=== PATIENT | male | born 1980 | race Caucasian/White ===

== ENCOUNTER 2022-05-03 13:34 | Emergency (ER) | payer OTHER ==
[~2022-05-03] VITALS: Ht 188 cm; Wt 100.9 kg
[~2022-05-03 13:34] MED LIST: AMBIEN 5MG TABLE5 MG PO; CEPHALEXIN500 M1 PO; CPAP; DULERA1 AR1; FLONASE NASAL S16 GM NS; FLOVENT 220MCG7.9 GM IH; PREDNISONE10 MG PO; PRILOSEC 20MG20 MG PO; RT ADVAIR 528 DISKUS IH; SINGULAIR 110 MG/TAB PO; SPORANOX100 MG PO; TUDORZA IH; VENTOLIN0.09 MG IH; ZITHROMAX Z PA250 MG PO; ZYRTEC 10MG10 MG PO
[2022-05-03 13:48] VITALS: TEMP 97.9
[2022-05-03 15:18] LABS: BASO # 0.1 K/mm3 (0.0-0.2); BASO % 0.5 % (0.0-2.0); EOS # 0.2 K/mm3 (0.0-0.7); EOS % 1.5 % (0.0-4.0); GRAN # 8.1 K/mm3 (1.4-6.5); GRAN % 74.3 % (42.2-75.2); HEMATOCRIT 45.4 % (42.0-52.0); HEMOGLOBIN 16.1 g/dl (13.5-18.0); LYMPH # 1.8 K/mm3 (1.2-3.4); LYMPH % 16.6 % (20.0-51.0); MEAN CELL VOLUME 88 fl (80.0-100.0); MEAN CORPUSCULAR HEMOGLOBIN 31 pg (27-31); MEAN CORPUSCULAR HGB CONC 36 g/dl (33.0-37.0); MEAN PLATELET VOLUME 9.5 fl (7.4-10.4); MONO # 0.8 K/mm3 (0.1-0.6); MONO % 6.8 % (1.7-9.3); PLATELET COUNT 266 K/mm3 (130-400); RED BLOOD COUNT 5.18 M/mm3 (4.20-5.60); REDCELL DISTRIBUTION WIDTH-CV 12.9 % (11.5-14.5)
[2022-05-03 15:34] LABS: CALCIUM 9.5 mg/dL (8.4-10.2); CREATININE, serum 1.14 mg/dL (0.72-1.25); POTASSIUM 4.2 mmol/L (3.5-4.5)
[2022-05-03] MEDS ORDERED: ROBAXIN 50500 MG/TAB PO (16:25)
[2022-05-03] MEDS ORDERED: NAPROSYN500 MG PO (16:25)
[2022-05-03 16:36] VITALS: BP 125/77; PULSE 81
== END 2022-05-03 16:36 | disposition home or self-care (01) ==
LOC: COL.ER 13:34
PROVIDERS: Emergency Medicine
DX: M77.52 Other enthesopathy of left foot and ankle (principal); F17.210 Nicotine dependence, cigarettes, uncomplicated
CPT/HCPCS: J8540

== ENCOUNTER 2024-08-10 07:51 | Emergency (ER) | payer OTHER ==
[~2024-08-10] VITALS: Ht 185.4 cm; Wt 108.2 kg
[~2024-08-10 07:51] MED LIST changes: +NAPROSYN500 MG PO; +ROBAXIN 50500 MG/TAB PO
[2024-08-10] MEDS ORDERED: Morphine 10 MG/ML VIAL IM ONE (08:45)
[2024-08-10 08:53] LABS: BASO # 0.1 K/mm3 (0.0-0.2); BASO % 0.5 % (0.0-2.0); EOS # 0.2 K/mm3 (0.0-0.7); EOS % 1.9 % (0.0-4.0); GRAN # 6.5 K/mm3 (1.4-6.5); GRAN % 71.8 % (42.2-75.2); HEMATOCRIT 43.7 % (42.0-52.0); HEMOGLOBIN 15.6 g/dl (13.5-18.0); LYMPH # 1.5 K/mm3 (1.2-3.4); LYMPH % 15.9 % (20.0-51.0); MEAN CELL VOLUME 93 fl (80.0-100.0); MEAN CORPUSCULAR HEMOGLOBIN 33 pg (27-31); MEAN CORPUSCULAR HGB CONC 36 g/dl (33.0-37.0); MEAN PLATELET VOLUME 9.5 fl (7.4-10.4); MONO # 0.9 K/mm3 (0.1-0.6); MONO % 9.5 % (1.7-9.3); PLATELET COUNT 247 K/mm3 (130-400); RED BLOOD COUNT 4.71 M/mm3 (4.20-5.60); REDCELL DISTRIBUTION WIDTH-CV 12.1 % (11.5-14.5)
[2024-08-10 09:12] LABS: ALBUMIN 3.6 g/dL (3.5-5.0); BILIRUBIN,TOTAL 1.6 mg/dL (0.2-1.2); CALCIUM 9.5 mg/dL (8.4-10.2); CREATININE, serum 1.07 mg/dL (0.72-1.25); POTASSIUM 3.8 mEq/L (3.5-4.5); TOTAL PROTEIN 7.5 g/dl (6.2-8.1)
[2024-08-10] MEDS ORDERED: INDOCIN50 MG PO (10:08)
[2024-08-10] MEDS ORDERED: ROXICODONE 55 MG/TAB PO (10:08)
[2024-08-10] MEDS ORDERED: PREDNISONE20 MG PO (10:08)
[2024-08-10 10:32] VITALS: BP 118/80; PULSE 92; TEMP 98.9
[2024-08-10 11:07] LABS: SYNOVIAL FL. MONONUCLEAR 6.6 % (0-75); SYNOVIAL FLUID RBC 0 /mm3 (0-0)
[2024-08-10 11:10] LABS: SYNOVIAL FLUID WBC 27150 /mm3 (200-600)
[2024-08-10 11:12] LABS: SYNOVIAL FLUID APPEARANCE CLOUDY; SYNOVIAL FLUID COLOR YELLOW
== END 2024-08-10 10:33 | disposition home or self-care (01) ==
LOC: COL.ER 07:51
PROVIDERS: Personal Emergency Response Attendant
DX: M25.461 Effusion, right knee (principal)
CPT/HCPCS: J2270